=== PATIENT | female | born 1950 | race Caucasian/White ===

== ENCOUNTER 2020-06-22 14:59 | Emergency (ER) | payer MEDICARE ==
[~2020-06-22] VITALS: Ht 160 cm; Wt 86.4 kg
[2020-06-22 15:01] VITALS: Ht 160 cm; Wt 86.4 kg
[2020-06-22 17:02] VITALS: BP 173/90
== END 2020-06-23 07:49 | disposition home or self-care (01) ==
LOC: D.ER 14:59
DX: S00.03XA Contusion of scalp, initial encounter (principal); W22.8XXA Striking against or struck by other objects, initial encounter; Y93.9 Activity, unspecified; Y92.9 Unspecified place or not applicable